=== PATIENT | female | born 1965 | race Caucasian/White ===

== ENCOUNTER 2019-06-28 12:54 | Outpatient (CLI) | payer OTHER, SELFPAY ==
[2019-06-28 14:36] LABS: FREE T4 0.82 ng/dL (0.76-1.46); TSH 3.49 uIU/mL (0.36-3.74)
[2019-06-28 22:23] LABS: T3,Free 3.1 pg/ml (2.8-5.3)
== END 2019-06-28 13:14 ==
PROVIDERS: Visit Provider Family Medicine Adult Medicine
DX: E03.9 Hypothyroidism, unspecified (principal); R53.83 Other fatigue
CPT/HCPCS: 36415; 84439; 84443; 84481